=== PATIENT | female | born 1960 | race Caucasian/White ===

== ENCOUNTER 2022-08-02 21:46 | Inpatient (IN) | payer OTHER, BC ==
[~2022-08-02 21:46] MED LIST: Iopamidol-370 76% 500 ML MDV (1 ML CHARGE) ONE
[2022-08-02 22:14] LABS: #Basophils 0.1 thou/uL (0.0-0.2); #Eosinphils 0.2 thou/uL (0.0-0.7); #Lymphocytes 1.9 thou/uL (1.20-3.40); #Monocytes 0.5 thou/uL (0.11-0.59); #Neutrophils 7.3 thou/uL (1.40-6.50); %Basophils 0.6 % (0.0-1.0); %Eosinophils 1.8 % (0.0-10.0); %Lymphocytes 18.9 % (21.0-51.0); %Monocytes 5.4 % (0.0-10.0); %Neutrophils 73.3 % (42.0-75.0); Hemoglobin 12.9 g/dL (12.0-16.0); Mean Corpuscular HGB CONC 36.4 g/dL (32.0-36.0); Mean Corpuscular Hemoglobin 32.5 pg (27.0-31.0); Mean Corpuscular Volume 89.4 fl (78.0-98.0); Mean Platelet Volume 7.5 fL (7.4-10.4); Platelet Count 268 10x3/uL (130-400); RBC Distribution Width 11.8 % (11.5-14.5); Red Blood Cell (RBC) Count 3.96 mill/uL (4.20-5.40)
[2022-08-02] MEDS ORDERED: fentaNYL 50 mcg/mL 1 mL Vial ONE ×2 (22:23→22:37)
[2022-08-02] MEDS ORDERED: Ondansetron PF 4 MG/2 ML Vial ONE (22:24)
[2022-08-02 22:27] LABS: INR-International Normal Ratio 1.2; PTT 31.4 sec (22.9-36.1); Prothrombin Time 15.3 sec (12.0-14.7)
[2022-08-02] MEDS ORDERED: Boostrix 0.5 ML (Tdap) VIAL (>/=7 yrs of age) ONE (22:28)
[2022-08-02] MEDS ORDERED: CEFAZOLIN 1 GM VIAL ONE (22:28)
[2022-08-02 22:39] LABS: Acetaminophen Less than 10.0 mcg/mL (10.0-30.0); Alcohol 14 mg/dL (Less than 10); Salicylate Less than 8.0 mg/dL (15.0-30.0)
[2022-08-02 22:40] LABS: ALT (SGPT) 213 U/L (8-55); AST (SGOT) 209 U/L (5-34); Albumin 3.9 g/dL (3.5-5.0); Alkaline Phosphatase 78 U/L (40-110); Anion Gap 21 mmol/L (10-20); BUN (Urea Nitrogen) 13 mg/dL (9.8-20.1); Bilirubin, Total 0.4 mg/dL (0.2-1.2); Calc. Creatinine Clearance 0 mL/min (70-130); Calcium 8.5 mg/dL (7.8-10.44); Carbon Dioxide 18 mmol/L (22-29); Chloride 109 mmol/L (98-107); Estimated GFR 44; Globulin 2.4 g/dL (2.4-3.5); Glucose 188 mg/dL (70-105); Lipase 70 U/L (8-78); Potassium 3.9 mmol/L (3.5-5.1); Protein, Total 6.3 g/dL (6.0-8.3); Sodium 144 mmol/L (136-145)
[2022-08-02] MEDS ORDERED: Vecuronium 10 MG VIAL ONE (22:55)
[2022-08-02] MEDS ORDERED: Fentanyl CADD 100 ML IV SCH (23:00)
[2022-08-02] MEDS ORDERED: Lidocaine 1% (PF) 30 ML VIAL ONE (23:11)
[2022-08-02] MEDS ORDERED: Ventilator Sedation Protocol 1 EACH FS SCH (23:45)
[2022-08-02] MEDS ORDERED: Dextrose 5% in Water 1,000 ML IV PRN (23:50)
[2022-08-02] MEDS ORDERED: Insulin Regular 300 UNITS/3 ML VIAL SC PRN (23:50)
[2022-08-02] MEDS ORDERED: Dextrose 50% Abboject 50 ML SYRINGE SLOW IVP PRN (23:50)
[2022-08-02] MEDS ORDERED: Ipratropium/Albuterol 3 ML NEB NEB PRN (23:50)
[2022-08-03 00:07] LABS: Analyzer IN Cardio ER; Base Excess (BEa) -11.4 mEq/L (-2.0 to +3.0); CO2 Tension 29.8 mmHg (35.0-45.0); Carboxyhemoglobin (COHb) 0.3 gm% (0.0-3.0); Hematocrit-ABG 36 % (36.0-47.0); Hemoglobin (Hb) 12.4 g/dL (12.0-16.0); O2 Tension (PaO2), arterial 277.3 mmHg (> 80.0); pH, Arterial 7.287 (7.35-7.45)
[2022-08-03 00:10] LABS: Actual Bicarbonate (HCO3a) 13.9 mEq/L (22-28)
[2022-08-03 00:11] LABS: Calcium, Ionized (arterial) 0.63 mmol/L (1.12-1.30); Potassium - ABG Lab 6.21 mmol/L (3.70-5.30); Puncture Site RRA
[2022-08-03] MEDS ORDERED: fentaNYL 50 mcg/mL 1 mL Vial ONE (01:21)
[2022-08-03] MEDS ORDERED: Dexamethasone 20 MG/5 ML VIAL ONE (01:57)
[2022-08-03] MEDS ORDERED: Phenylephrine 10 MG/ML VIAL ONE (01:57)
[2022-08-03] MEDS ORDERED: Rocuronium Bromide 10 MG/ML (10ML VIAL) ONE (01:57)
[2022-08-03] MEDS ORDERED: Calcium Chloride 1 GM/10 ML Abboject SYRINGE ONE ×3 (01:57→19:13)
[2022-08-03] MEDS ORDERED: Vecuronium 10 MG VIAL ONE (01:57)
[2022-08-03] MEDS ORDERED: Piperacillin/Tazobactam 3.375 GM in Sodium Chloride 0.9% 100 ML IVPB SCH (02:00)
[2022-08-03] MEDS ORDERED: Midazolam HCl 2 mg/2 ml Vial ONE ×4 (02:12→19:14)
[2022-08-03 03:59] LABS: Actual Bicarbonate (HCO3a) 18.9 mEq/L (22-28); Base Excess (BEa) -5.3 mEq/L (-2.0 to +3.0); CO2 Tension 32.1 mmHg (35.0-45.0); Calcium, Ionized (arterial) 1.04 mmol/L (1.12-1.30); Carboxyhemoglobin (COHb) 0.3 gm% (0.0-3.0); Hematocrit-ABG 29 % (36.0-47.0); O2 Tension (PaO2), arterial 143.5 mmHg (> 80.0); Potassium - ABG Lab 3.19 mmol/L (3.70-5.30); pH, Arterial 7.388 (7.35-7.45)
[2022-08-03 04:00] LABS: #Lymphocytes 0.8 thou/uL (1.20-3.40); #Monocytes 0.7 thou/uL (0.11-0.59); #Neutrophils 7.2 thou/uL (1.40-6.50); %Eosinophils 0.4 % (0.0-10.0); %Lymphocytes 8.6 % (21.0-51.0); Hemoglobin 9.2 g/dL (12.0-16.0); Mean Corpuscular HGB CONC 35.8 g/dL (32.0-36.0); Mean Corpuscular Hemoglobin 32.3 pg (27.0-31.0); Mean Corpuscular Volume 90.2 fl (78.0-98.0); Mean Platelet Volume 7.7 fL (7.4-10.4); Platelet Count 130 10x3/uL (130-400); RBC Distribution Width 12.3 % (11.5-14.5); Red Blood Cell (RBC) Count 2.85 mill/uL (4.20-5.40); White Blood Cell (WBC) Count 8.7 10x3/uL (4.8-10.8)
[2022-08-03] MEDS: Sodium Chloride 0.9% 1,000 ML IV SCH ×3 (04:00→22:48)
[2022-08-03 04:01] LABS: ALV-art Gradient 101.575 mmHg (0-20); Puncture Site Arterial Line
[2022-08-03 04:18] LABS: INR-International Normal Ratio 1.2; PTT 26.5 sec (22.9-36.1); Prothrombin Time 15.9 sec (12.0-14.7)
[2022-08-03 04:22] LABS: Lactic Acid 5.4 mmol/L (0.5-2.2)
[2022-08-03 04:31] LABS: ALT (SGPT) 113 U/L (8-55); AST (SGOT) 188 U/L (5-34); Alkaline Phosphatase 55 U/L (40-110); Anion Gap 15 mmol/L (10-20); BUN (Urea Nitrogen) 15 mg/dL (9.8-20.1); Bilirubin, Total 1.3 mg/dL (0.2-1.2); Calc. Creatinine Clearance 0 mL/min (70-130); Calcium 7.7 mg/dL (7.8-10.44); Carbon Dioxide 17 mmol/L (22-29); Chloride 115 mmol/L (98-107); Estimated GFR 54; Globulin 1.9 g/dL (2.4-3.5); Glucose 127 mg/dL (70-105); Magnesium 1.6 mg/dL (1.6-2.6); Phosphorus 3.8 mg/dL (2.3-4.7); Potassium 3.3 mmol/L (3.5-5.1); Protein, Total 4.9 g/dL (6.0-8.3); Sodium 144 mmol/L (136-145)
[2022-08-03 04:39] LABS: Bacteria/HPF None Seen HPF (None Seen); Bilirubin Negative (Negative); Blood, Urine 3+ (Negative); CAUTI Indications for Culture Acute Hematuria; Clarity Clear (Clear); Glucose, Urine (Dipstick) Normal (Negative); Ketone, Urine Negative (Negative); Leukocyte Negative Leu/uL (Negative); Nitrite Negative (Negative); Protein, Urine (Dipstick) 30 mg/dL (Neg-Trace); Specific Gravity, Urine 1.026 (1.002-1.036); Squamous Epithelial 0-3 HPF (0-3); Urobilinogen Normal mg/dL (Less than 2); pH, Urine 5.5 (5.0-9.0)
[2022-08-03 04:40] LABS: Amphetamine Not Detected (NotDetected); Barbiturates Screen Not Detected (NotDetected); Benzodiazepine Screen Not Detected (NotDetected); Cocaine Metabolite Screen Not Detected (NotDetected); Methadone Not Detected (NotDetected); Methamphetamine Not Detected (NotDetected); Opiate Screen Not Detected (NotDetected); Oxycodone Screen Not Detected (NotDetected); Phencyclidine (PCP) Not Detected (NotDetected); THC/Cannabinoid Screen Detected (NotDetected); Tricyclic Screen Not Detected (NotDetected)
[2022-08-03 04:41] LABS: Urine Culture Reflex No No
[2022-08-03] MEDS ORDERED: Calcium Chloride 13.6 MEQ in Sodium Chloride 0.9% 100 ML IVPB SCH (04:45)
[2022-08-03] MEDS ORDERED: Magnesium 2 GM/50 ML(in water) 2 GM in Premix Bag 1 BAG IVPB SCH (05:00)
[2022-08-03] MEDS ORDERED: Potassium Phosphate 30 MMOL in Sodium Chloride 0.9% 250 ML 250 ML IVPB SCH (05:00)
[2022-08-03] MEDS ORDERED: Sodium Chloride 0.9% 1,000 ML IV SCH ×2 (06:45→11:30)
[2022-08-03] MEDS: Ipratropium/Albuterol 3 ML NEB NEB SCH ×3 (07:43→18:39)
[2022-08-03 07:46] LABS: CO2 Tension 27.9 mmHg (35.0-45.0); Calcium, Ionized (arterial) 1.14 mmol/L (1.12-1.30); Carboxyhemoglobin (COHb) 0.3 gm% (0.0-3.0); Hematocrit-ABG 31 % (36.0-47.0); Hemoglobin (Hb) 10.7 g/dL (12.0-16.0); Potassium - ABG Lab 4.26 mmol/L (3.70-5.30); pH, Arterial 7.376 (7.35-7.45)
[2022-08-03 07:52] LABS: ALV-art Gradient 81.325 mmHg (0-20); Puncture Site Arterial Line
[2022-08-03] MEDS ORDERED: Albumin 5% 0 ML ONE (09:09)
[2022-08-03 09:18] LABS: Lactic Acid 6.3 mmol/L (0.5-2.2)
[2022-08-03] MEDS ORDERED: Albumin 5% 250 ML ONE (09:28)
[2022-08-03 09:33] LABS: Base Excess (BEa) -10.3 mEq/L (-2.0 to +3.0); CO2 Tension 28.9 mmHg (35.0-45.0); Carboxyhemoglobin (COHb) 0.3 gm% (0.0-3.0); Hematocrit-ABG 30 % (36.0-47.0); Hemoglobin (Hb) 10.1 g/dL (12.0-16.0); O2 Tension (PaO2), arterial 153.2 mmHg (> 80.0); Potassium - ABG Lab 4.27 mmol/L (3.70-5.30); pH, Arterial 7.321 (7.35-7.45)
[2022-08-03 09:37] LABS: ALV-art Gradient 95.875 mmHg (0-20); Actual Bicarbonate (HCO3a) 14.6 mEq/L (22-28); Puncture Site Arterial Line
[2022-08-03 09:45] LABS: #Lymphocytes 0.5 thou/uL (1.20-3.40); #Monocytes 0.6 thou/uL (0.11-0.59); %Basophils 0.3 % (0.0-1.0); %Eosinophils 0.2 % (0.0-10.0); %Lymphocytes 4.8 % (21.0-51.0); %Monocytes 5.3 % (0.0-10.0); %Neutrophils 89.4 % (42.0-75.0); Hemoglobin 9.7 g/dL (12.0-16.0); Mean Corpuscular HGB CONC 36.3 g/dL (32.0-36.0); Mean Corpuscular Hemoglobin 32.8 pg (27.0-31.0); Mean Corpuscular Volume 90.3 fl (78.0-98.0); Mean Platelet Volume 7.9 fL (7.4-10.4); Platelet Count 141 10x3/uL (130-400); RBC Distribution Width 12.5 % (11.5-14.5); Red Blood Cell (RBC) Count 2.95 mill/uL (4.20-5.40); White Blood Cell (WBC) Count 11.2 10x3/uL (4.8-10.8)
[2022-08-03] MEDS ORDERED: Sodium Bicarb 50 MEQ/50 ML VIAL IVP SCH (10:00)
[2022-08-03] MEDS ORDERED: Calcium Chloride 1 GM/10 ML Abboject SYRINGE IVP SCH (10:00)
[2022-08-03] MEDS ORDERED: CEFAZOLIN 2 GM in Sodium Chloride 0.9% 100 ML IVPB SCH (10:15)
[2022-08-03 10:27] LABS: Anion Gap 17 mmol/L (10-20); BUN (Urea Nitrogen) 16 mg/dL (9.8-20.1); Calc. Creatinine Clearance 81 mL/min (70-130); Calcium 8.1 mg/dL (7.8-10.44); Carbon Dioxide 15 mmol/L (22-29); Chloride 117 mmol/L (98-107); Estimated GFR 56; Glucose 176 mg/dL (70-105); Magnesium 2.1 mg/dL (1.6-2.6); Phosphorus 6.3 mg/dL (2.3-4.7); Potassium 4.3 mmol/L (3.5-5.1); Sodium 145 mmol/L (136-145)
[2022-08-03] MEDS ORDERED: Midazolam HCl 2 mg/2 ml Vial IVP SCH (11:15)
[2022-08-03] MEDS: Piperacillin/Tazobactam 3.375 GM in Sodium Chloride 0.9% 100 ML IVPB SCH ×2 (11:22→20:06)
[2022-08-03 11:30] LABS: Actual Bicarbonate (HCO3a) 16.8 mEq/L (22-28); Base Excess (BEa) -9.2 mEq/L (-2.0 to +3.0); CO2 Tension 36.8 mmHg (35.0-45.0); Calcium, Ionized (arterial) 1.08 mmol/L (1.12-1.30); Carboxyhemoglobin (COHb) 0.3 gm% (0.0-3.0); Hematocrit-ABG 25 % (36.0-47.0); Hemoglobin (Hb) 8.4 g/dL (12.0-16.0); O2 Tension (PaO2), arterial 133.5 mmHg (> 80.0); pH, Arterial 7.278 (7.35-7.45)
[2022-08-03 11:35] LABS: Fibrinogen 210 mg/dL (253-463); INR-International Normal Ratio 1.2; PTT 28.7 sec (22.9-36.1); Prothrombin Time 16.2 sec (12.0-14.7)
[2022-08-03 11:37] LABS: Puncture Site Arterial Line
[2022-08-03 11:56] LABS: Platelet Count 98 10x3/uL (130-400)
[2022-08-03 11:59] LABS: D-Dimer Test Greater than 20.00 *mcg/mL (0.27-0.43)
[2022-08-03] MEDS ORDERED: Dexmedetomidine In 0.9 % NaCl 100 ML IVPB SCH (15:15)
[2022-08-03 17:25] LABS: Hemoglobin 6.4 g/dL (12.0-16.0); Mean Corpuscular HGB CONC 35.6 g/dL (32.0-36.0); Mean Corpuscular Hemoglobin 31.6 pg (27.0-31.0); Mean Corpuscular Volume 88.9 fl (78.0-98.0); Mean Platelet Volume 8.4 fL (7.4-10.4); Platelet Count 81 10x3/uL (130-400); RBC Distribution Width 12.6 % (11.5-14.5); Red Blood Cell (RBC) Count 2.03 mill/uL (4.20-5.40); White Blood Cell (WBC) Count 8.3 10x3/uL (4.8-10.8)
[2022-08-03 17:40] LABS: Anion Gap 14 mmol/L (10-20); BUN (Urea Nitrogen) 17 mg/dL (9.8-20.1); Calc. Creatinine Clearance 86 mL/min (70-130); Calcium 8.2 mg/dL (7.8-10.44); Carbon Dioxide 20 mmol/L (22-29); Chloride 119 mmol/L (98-107); Estimated GFR 59; Glucose 117 mg/dL (70-105); Potassium 4.4 mmol/L (3.5-5.1); Sodium 149 mmol/L (136-145)
[2022-08-03 17:55] LABS: Band 16 % (5-11); Lymphocytes 8 % (21-51); MDiff Complete? YES; Monocytes 3 % (0-10); Neutrophil 73 % (42-75); Platelet Morphology Comment Appears Decreased; Polychromasia SLIGHT = 2-3 cells (100X) (0-2/hpf)
[2022-08-03] MEDS ORDERED: Fentanyl BOLUS 250 ML IVPB PRN (18:30)
[2022-08-03] MEDS: Hydrocortisone Sod Succ/PF 100 mg/2 ml Vial IVP SCH (18:38)
[2022-08-03] MEDS: Fentanyl CADD 100 ML IV SCH (18:38)
[2022-08-03] MEDS: Lactated Ringer's 1,000 ML IV SCH (18:38)
[2022-08-03 19:09] LABS: Actual Bicarbonate (HCO3a) 20.9 mEq/L (22-28); Base Excess (BEa) -3.4 mEq/L (-2.0 to +3.0); CO2 Tension 33.6 mmHg (35.0-45.0); Calcium, Ionized (arterial) 1.09 mmol/L (1.12-1.30); Carboxyhemoglobin (COHb) 0.6 gm% (0.0-3.0); Hematocrit-ABG 20 % (36.0-47.0); Hemoglobin (Hb) 6.7 g/dL (12.0-16.0); O2 Tension (PaO2), arterial 112.6 mmHg (> 80.0); Potassium - ABG Lab 4.03 mmol/L (3.70-5.30); pH, Arterial 7.411 (7.35-7.45)
[2022-08-03 19:11] LABS: Puncture Site Arterial Line
[2022-08-03 19:42] LABS: INR-International Normal Ratio 1.4; PTT 32.1 sec (22.9-36.1); Prothrombin Time 17.7 sec (12.0-14.7)
[2022-08-03 21:38] LABS: #Lymphocytes 0.5 thou/uL (1.20-3.40); #Monocytes 0.9 thou/uL (0.11-0.59); #Neutrophils 7.2 thou/uL (1.40-6.50); %Eosinophils 0.2 % (0.0-10.0); %Lymphocytes 6.2 % (21.0-51.0); %Monocytes 10.2 % (0.0-10.0); %Neutrophils 83.5 % (42.0-75.0); Hemoglobin 9.5 g/dL (12.0-16.0); Mean Corpuscular HGB CONC 36.1 g/dL (32.0-36.0); Mean Corpuscular Hemoglobin 32.2 pg (27.0-31.0); Mean Corpuscular Volume 89.3 fl (78.0-98.0); Platelet Count 70 10x3/uL (130-400); RBC Distribution Width 12.8 % (11.5-14.5); Red Blood Cell (RBC) Count 2.93 mill/uL (4.20-5.40); White Blood Cell (WBC) Count 8.7 10x3/uL (4.8-10.8)
[2022-08-03 21:50] LABS: Lactic Acid 3.3 mmol/L (0.5-2.2)
[2022-08-04] MEDS: Hydrocortisone Sod Succ/PF 100 mg/2 ml Vial IVP SCH ×6 (00:10→21:56)
[2022-08-04] MEDS: Piperacillin/Tazobactam 3.375 GM in Sodium Chloride 0.9% 100 ML IVPB SCH (01:57)
[2022-08-04] MEDS: Lactated Ringer's 1,000 ML IV SCH ×3 (04:07→19:25)
[2022-08-04 04:50] LABS: #Lymphocytes 0.8 thou/uL (1.20-3.40); #Monocytes 0.6 thou/uL (0.11-0.59); #Neutrophils 7.3 thou/uL (1.40-6.50); %Basophils 0.1 % (0.0-1.0); %Eosinophils 0.2 % (0.0-10.0); %Lymphocytes 9.5 % (21.0-51.0); %Neutrophils 83.3 % (42.0-75.0); Hemoglobin 9.3 g/dL (12.0-16.0); Mean Corpuscular HGB CONC 35.3 g/dL (32.0-36.0); Mean Corpuscular Hemoglobin 31.4 pg (27.0-31.0); Mean Corpuscular Volume 88.8 fl (78.0-98.0); Mean Platelet Volume 8.6 fL (7.4-10.4); Platelet Count 67 10x3/uL (130-400); RBC Distribution Width 12.9 % (11.5-14.5); Red Blood Cell (RBC) Count 2.96 mill/uL (4.20-5.40); White Blood Cell (WBC) Count 8.8 10x3/uL (4.8-10.8)
[2022-08-04 04:54] LABS: Lactic Acid 2.1 mmol/L (0.5-2.2)
[2022-08-04 05:01] LABS: Anion Gap 15 mmol/L (10-20); BUN (Urea Nitrogen) 18 mg/dL (9.8-20.1); Calc. Creatinine Clearance 92 mL/min (70-130); Calcium 9.4 mg/dL (7.8-10.44); Carbon Dioxide 20 mmol/L (22-29); Chloride 117 mmol/L (98-107); Estimated GFR 64; Glucose 133 mg/dL (70-105); Magnesium 1.8 mg/dL (1.6-2.6); Phosphorus 3.6 mg/dL (2.3-4.7); Potassium 4.3 mmol/L (3.5-5.1); Sodium 148 mmol/L (136-145)
[2022-08-04] MEDS: Ipratropium/Albuterol 3 ML NEB NEB SCH ×3 (08:09→18:23)
[2022-08-04] MEDS: Fentanyl CADD 100 ML IV SCH ×2 (09:29→23:04)
[2022-08-04] MEDS: Pantoprazole 40 MG VIAL IVP SCH (09:29)
[2022-08-04] MEDS ORDERED: PHENYLEPHRINE-NS 100 MCG/ML 10 ML SYRINGE ONE ×2 (13:40→14:04)
[2022-08-04] MEDS ORDERED: Fentanyl 250 MCG/5 ML VIAL ONE (13:40)
[2022-08-04] MEDS ORDERED: Vecuronium 10 MG VIAL ONE ×2 (13:40→14:04)
[2022-08-04] MEDS ORDERED: Vasopressin 20 UNITS/ML VIAL ONE (13:48)
[2022-08-04] MEDS ORDERED: Albumin 5% 500 ML ONE (13:48)
[2022-08-04] MEDS ORDERED: PROPOFOL 200 MG/20 ML VIAL ONE (14:04)
[2022-08-04] MEDS ORDERED: Sevoflurane 250 ML INH ANEST BOTTLE ONE (14:06)
[2022-08-04 17:22] LABS: Actual Bicarbonate (HCO3a) 23.6 mEq/L (22-28); Base Excess (BEa) -1.4 mEq/L (-2.0 to +3.0); CO2 Tension 40.9 mmHg (35.0-45.0); Calcium, Ionized (arterial) 1.15 mmol/L (1.12-1.30); Carboxyhemoglobin (COHb) 0.4 gm% (0.0-3.0); Hematocrit-ABG 25 % (36.0-47.0); Hemoglobin (Hb) 8.5 g/dL (12.0-16.0); O2 Tension (PaO2), arterial 111.1 mmHg (> 80.0); Potassium - ABG Lab 3.65 mmol/L (3.70-5.30); pH, Arterial 7.379 (7.35-7.45)
[2022-08-04 17:25] LABS: ALV-art Gradient 408.175 mmHg (0-20); Puncture Site Arterial Line
[2022-08-04 18:13] LABS: #Lymphocytes 0.8 thou/uL (1.20-3.40); #Monocytes 0.4 thou/uL (0.11-0.59); #Neutrophils 5.2 thou/uL (1.40-6.50); %Monocytes 6.4 % (0.0-10.0); %Neutrophils 80.6 % (42.0-75.0); Hemoglobin 8.3 g/dL (12.0-16.0); Mean Corpuscular Hemoglobin 32.7 pg (27.0-31.0); Mean Corpuscular Volume 90.8 fl (78.0-98.0); Mean Platelet Volume 9.2 fL (7.4-10.4); Platelet Count 59 10x3/uL (130-400); Red Blood Cell (RBC) Count 2.54 mill/uL (4.20-5.40); White Blood Cell (WBC) Count 6.4 10x3/uL (4.8-10.8)
[2022-08-04 18:41] LABS: Anion Gap 13 mmol/L (10-20); BUN (Urea Nitrogen) 18 mg/dL (9.8-20.1); Calc. Creatinine Clearance 111 mL/min (70-130); Calcium 8.5 mg/dL (7.8-10.44); Carbon Dioxide 22 mmol/L (22-29); Chloride 115 mmol/L (98-107); Estimated GFR 81; Glucose 146 mg/dL (70-105); Magnesium 1.9 mg/dL (1.6-2.6); Potassium 3.8 mmol/L (3.5-5.1); Sodium 146 mmol/L (136-145)
[2022-08-04] MEDS: ALBUMIN 5% 25 GM/500 ML BAG IVPB SCH ×2 (19:15→20:15)
[2022-08-04] MEDS ORDERED: Potassium Phosphate 30 MMOL in Sodium Chloride 0.9% 250 ML 250 ML IVPB SCH (19:30)
[2022-08-04] MEDS: Propofol 1,000 MG/100 ML VIAL IV PRN (23:32)
[2022-08-05] MEDS: Dexmedetomidine 1,000 MCG in Sodium Chloride 0.9% 250 ML 240 ML IVPB SCH ×3 (01:10→23:58)
[2022-08-05] MEDS: Hydrocortisone Sod Succ/PF 100 mg/2 ml Vial IVP SCH ×4 (02:00→21:57)
[2022-08-05] MEDS: hydrALAZINE 20 MG/ML VIAL SLOW IVP PRN (03:08)
[2022-08-05 04:13] LABS: #Lymphocytes 0.7 thou/uL (1.20-3.40); #Monocytes 0.4 thou/uL (0.11-0.59); #Neutrophils 4.4 thou/uL (1.40-6.50); %Basophils 0.1 % (0.0-1.0); %Eosinophils 0.3 % (0.0-10.0); %Lymphocytes 13.3 % (21.0-51.0); %Monocytes 6.7 % (0.0-10.0); %Neutrophils 79.6 % (42.0-75.0); Hemoglobin 7.7 g/dL (12.0-16.0); Mean Corpuscular HGB CONC 35.9 g/dL (32.0-36.0); Mean Corpuscular Hemoglobin 32.4 pg (27.0-31.0); Mean Corpuscular Volume 90.4 fl (78.0-98.0); Mean Platelet Volume 9.6 fL (7.4-10.4); Platelet Count 61 10x3/uL (130-400); RBC Distribution Width 12.9 % (11.5-14.5); Red Blood Cell (RBC) Count 2.37 mill/uL (4.20-5.40); White Blood Cell (WBC) Count 5.5 10x3/uL (4.8-10.8)
[2022-08-05 04:29] LABS: Anion Gap 13 mmol/L (10-20); BUN (Urea Nitrogen) 16 mg/dL (9.8-20.1); Calc. Creatinine Clearance 123 mL/min (70-130); Calcium 8.3 mg/dL (7.8-10.44); Carbon Dioxide 22 mmol/L (22-29); Chloride 114 mmol/L (98-107); Estimated GFR 91; Glucose 143 mg/dL (70-105); Magnesium 1.7 mg/dL (1.6-2.6); Phosphorus 2.8 mg/dL (2.3-4.7); Potassium 3.8 mmol/L (3.5-5.1); Sodium 145 mmol/L (136-145)
[2022-08-05 04:42] LABS: CK (CPK) 6001 U/L (29-168)
[2022-08-05 06:08] LABS: Actual Bicarbonate (HCO3a) 22.9 mEq/L (22-28); Base Excess (BEa) -0.5 mEq/L (-2.0 to +3.0); Calcium, Ionized (arterial) 1.08 mmol/L (1.12-1.30); Carboxyhemoglobin (COHb) 0.1 gm% (0.0-3.0); Hematocrit-ABG 24 % (36.0-47.0); pH, Arterial 7.472 (7.35-7.45)
[2022-08-05 06:11] LABS: Puncture Site Arterial Line
[2022-08-05] MEDS: Ipratropium/Albuterol 3 ML NEB NEB SCH ×3 (06:13→18:26)
[2022-08-05] MEDS ORDERED: Calcium Chloride 1 GM/10 ML Abboject SYRINGE IVP SCH (06:30)
[2022-08-05] MEDS: Lactated Ringer's 1,000 ML IV SCH ×3 (06:42→21:56)
[2022-08-05] MEDS ORDERED: Lidocaine 1% w/Epinephrine 1:100K 20 ML VIAL FS SCH (07:00)
[2022-08-05] MEDS: Fentanyl CADD 100 ML IV SCH ×2 (08:59→18:17)
[2022-08-05] MEDS ORDERED: Piperacillin/Tazobactam 3.375 GM in Sodium Chloride 0.9% 100 ML IVPB SCH ×2 (10:00→10:15)
[2022-08-05] MEDS: Pantoprazole 40 MG VIAL IVP SCH (10:42)
[2022-08-05] MEDS: Propofol 1,000 MG/100 ML VIAL IV PRN (10:52)
[2022-08-05] MEDS ORDERED: CEFAZOLIN 2 GM in Sodium Chloride 0.9% 100 ML IVPB SCH (13:15)
[2022-08-05] MEDS: Piperacillin/Tazobactam 3.375 GM in Sodium Chloride 0.9% 100 ML IVPB SCH ×2 (14:28→21:56)
[2022-08-06] MEDS: Hydrocortisone Sod Succ/PF 100 mg/2 ml Vial IVP SCH ×4 (02:49→20:00)
[2022-08-06] MEDS: Fentanyl CADD 100 ML IV SCH ×2 (04:17→22:36)
[2022-08-06 05:10] LABS: Hemoglobin 8.7 g/dL (12.0-16.0); Mean Corpuscular HGB CONC 34.5 g/dL (32.0-36.0); Mean Corpuscular Hemoglobin 31.7 pg (27.0-31.0); Mean Corpuscular Volume 91.8 fl (78.0-98.0); Mean Platelet Volume 9.2 fL (7.4-10.4); Platelet Count 77 10x3/uL (130-400); RBC Distribution Width 12.8 % (11.5-14.5); Red Blood Cell (RBC) Count 2.75 mill/uL (4.20-5.40)
[2022-08-06 05:15] LABS: Anion Gap 10 mmol/L (10-20); BUN (Urea Nitrogen) 18 mg/dL (9.8-20.1); Calc. Creatinine Clearance 132 mL/min (70-130); Calcium 8.2 mg/dL (7.8-10.44); Carbon Dioxide 25 mmol/L (22-29); Chloride 112 mmol/L (98-107); Estimated GFR 99; Glucose 149 mg/dL (70-105); Magnesium 1.8 mg/dL (1.6-2.6); Phosphorus 2.6 mg/dL (2.3-4.7); Potassium 3.8 mmol/L (3.5-5.1); Sodium 143 mmol/L (136-145)
[2022-08-06 06:17] LABS: Lymphocytes 16 % (21-51); MDiff Complete? YES; Monocytes 1 % (0-10); Neutrophil 83 % (42-75); Platelet Morphology Comment Appears Decreased; Polychromasia SLIGHT = 2-3 cells (100X) (0-2/hpf); White Blood Cell (WBC) Count 7.7 10x3/uL (4.8-10.8)
[2022-08-06] MEDS: Lactated Ringer's 1,000 ML IV SCH ×3 (06:34→22:30)
[2022-08-06] MEDS: Piperacillin/Tazobactam 3.375 GM in Sodium Chloride 0.9% 100 ML IVPB SCH ×3 (06:34→22:44)
[2022-08-06] MEDS: Propofol 1,000 MG/100 ML VIAL IV PRN (06:49)
[2022-08-06] MEDS: Ipratropium/Albuterol 3 ML NEB NEB SCH ×3 (07:05→18:40)
[2022-08-06] MEDS ORDERED: Magnesium 2 GM/50 ML(in water) 2 GM in Premix Bag 1 BAG IVPB SCH (07:15)
[2022-08-06] MEDS ORDERED: Potassium Phosphate 30 MMOL in Sodium Chloride 0.9% 250 ML 250 ML IVPB SCH (09:00)
[2022-08-06] MEDS: Dexmedetomidine 1,000 MCG in Sodium Chloride 0.9% 250 ML 240 ML IVPB SCH (09:24)
[2022-08-06] MEDS: Pantoprazole 40 MG VIAL IVP SCH (09:27)
[2022-08-06] MEDS ORDERED: fentaNYL 50 mcg/mL 1 mL Vial SLOW IVP SCH (12:30)
[2022-08-06] MEDS ORDERED: Midazolam HCl 2 mg/2 ml Vial SLOW IVP SCH (12:30)
[2022-08-06] MEDS ORDERED: Rocuronium Bromide 10 MG/ML (10ML VIAL) ONE (13:07)
[2022-08-06] MEDS ORDERED: PHENYLEPHRINE-NS 100 MCG/ML 10 ML SYRINGE ONE (13:07)
[2022-08-06] MEDS ORDERED: CEFAZOLIN 1 GM VIAL ONE (14:11)
[2022-08-06] MEDS ORDERED: Vancomycin 1 GM VIAL ONE ×3 (15:06→17:00)
[2022-08-06] MEDS ORDERED: Bupivacaine PF 0.5% 30 ML VIAL ONE (21:06)
[2022-08-06] MEDS ORDERED: Bacitracin Zinc Ointment 30 gm TUBE ONE (21:16)
[2022-08-07] MEDS: Propofol 1,000 MG/100 ML VIAL IV PRN ×2 (01:32→08:38)
[2022-08-07] MEDS: Hydrocortisone Sod Succ/PF 100 mg/2 ml Vial IVP SCH ×3 (01:49→14:45)
[2022-08-07 04:47] LABS: Hemoglobin 9.9 g/dL (12.0-16.0); Mean Corpuscular Volume 91.4 fl (78.0-98.0); Platelet Count 118 10x3/uL (130-400); RBC Distribution Width 13.7 % (11.5-14.5)
[2022-08-07 05:05] LABS: Anion Gap 12 mmol/L (10-20); BUN (Urea Nitrogen) 16 mg/dL (9.8-20.1); Calc. Creatinine Clearance 176 mL/min (70-130); Calcium 7.4 mg/dL (7.8-10.44); Carbon Dioxide 25 mmol/L (22-29); Chloride 112 mmol/L (98-107); Estimated GFR 101; Glucose 85 mg/dL (70-105); Phosphorus 2.2 mg/dL (2.3-4.7); Potassium 3.5 mmol/L (3.5-5.1); Sodium 145 mmol/L (136-145)
[2022-08-07 05:31] LABS: Band 12 % (5-11); Eosinophils 1 % (0-10); Lymphocytes 4 % (21-51); MDiff Complete? YES; Metamyelocyte 2 % (0-0); Monocytes 8 % (0-10); Myelocyte 6 % (0-0); Neutrophil 66 % (42-75); Nucleated RBC (Manual Ct) 2 % (0); Platelet Morphology Comment Appears Decreased; Reactive Lymphocytes 1 % (0-10)
[2022-08-07] MEDS: Piperacillin/Tazobactam 3.375 GM in Sodium Chloride 0.9% 100 ML IVPB SCH ×3 (05:46→21:54)
[2022-08-07] MEDS: Lactated Ringer's 1,000 ML IV SCH (05:46)
[2022-08-07] MEDS: Ipratropium/Albuterol 3 ML NEB NEB SCH ×3 (06:49→18:38)
[2022-08-07] MEDS ORDERED: Fentanyl CADD 100 ML ONE (07:33)
[2022-08-07] MEDS: Fentanyl CADD 100 ML IV SCH (07:47)
[2022-08-07] MEDS: Pantoprazole 40 MG VIAL IVP SCH (08:38)
[2022-08-07] MEDS ORDERED: Furosemide 20 MG/2 ML VIAL SLOW IVP SCH (08:45)
[2022-08-07] MEDS ORDERED: Naloxone HCl 0.4 mg/ml Vial IV PRN (10:00)
[2022-08-07] MEDS ORDERED: Zolpidem Tartrate 5 MG TAB PO PRN (10:00)
[2022-08-07] MEDS ORDERED: diphenhydrAMINE 25 MG CAP PO PRN (10:00)
[2022-08-07] MEDS ORDERED: diphenhydrAMINE 50 MG/ML VIAL IVP PRN (10:00)
[2022-08-07] MEDS ORDERED: Promethazine HCl 25 MG/ML VIAL IM PRN (10:00)
[2022-08-07] MEDS ORDERED: Communication Order-Pharmacy FS SCH (10:00)
[2022-08-07] MEDS ORDERED: diphenhydrAMINE 50 MG/ML VIAL IM PRN (10:00)
[2022-08-07] MEDS ORDERED: Morphine 4 MG/ML VIAL ONE (10:29)
[2022-08-07] MEDS ORDERED: Morphine 4 MG/ML VIAL SLOW IVP SCH (10:30)
[2022-08-07] MEDS: Ondansetron PF 4 MG/2 ML Vial IVP PRN ×3 (10:30→22:21)
[2022-08-07] MEDS: HYDROmorphone 10 mg/100 ml CADD IVPB PRN (11:05)
[2022-08-07 16:46] LABS: INR-International Normal Ratio 1.2; PTT 28.3 sec (22.9-36.1); Prothrombin Time 15.3 sec (12.0-14.7)
[2022-08-07] MEDS ORDERED: Scopolamine 1.5 mg/72 hour Patch TD SCH (18:30)
[2022-08-07] MEDS: Labetalol HCl 100 MG/20 ML VIAL SLOW IVP PRN (21:55)
[2022-08-07] MEDS: Scopolamine 1.5 mg/72 hour Patch TD SCH (22:16)
[2022-08-08 04:52] LABS: Band 7 % (5-11); Eosinophils 1 % (0-10); Hypochromia SLIGHT = 6-15 cells (100X) (0-5/hpf); Lymphocytes 12 % (21-51); MDiff Complete? YES; Mean Corpuscular HGB CONC 34.4 g/dL (32.0-36.0); Mean Corpuscular Hemoglobin 31.9 pg (27.0-31.0); Mean Corpuscular Volume 92.7 fl (78.0-98.0); Mean Platelet Volume 8.5 fL (7.4-10.4); Monocytes 12 % (0-10); Neutrophil 63 % (42-75); Platelet Count 134 10x3/uL (130-400); Platelet Morphology Comment Appears Adequate; RBC Distribution Width 13.9 % (11.5-14.5); Reactive Lymphocytes 5 % (0-10); Red Blood Cell (RBC) Count 3.12 mill/uL (4.20-5.40); White Blood Cell (WBC) Count 12.1 10x3/uL (4.8-10.8)
[2022-08-08 05:13] LABS: Anion Gap 14 mmol/L (10-20); BUN (Urea Nitrogen) 16 mg/dL (9.8-20.1); Calc. Creatinine Clearance 163 mL/min (70-130); Calcium 7.5 mg/dL (7.8-10.44); Carbon Dioxide 25 mmol/L (22-29); Chloride 111 mmol/L (98-107); Estimated GFR 99; Glucose 67 mg/dL (70-105); Potassium 2.8 mmol/L (3.5-5.1); Sodium 147 mmol/L (136-145)
[2022-08-08] MEDS: Piperacillin/Tazobactam 3.375 GM in Sodium Chloride 0.9% 100 ML IVPB SCH (05:44)
[2022-08-08] MEDS: Ipratropium/Albuterol 3 ML NEB NEB SCH ×3 (07:00→19:46)
[2022-08-08] MEDS ORDERED: Potassium Phosphate 30 MMOL in Sodium Chloride 0.9% 250 ML 250 ML IVPB SCH (08:15)
[2022-08-08] MEDS: Pantoprazole 40 MG VIAL IVP SCH (08:33)
[2022-08-08] MEDS: Labetalol HCl 100 MG/20 ML VIAL SLOW IVP PRN ×3 (08:46→16:52)
[2022-08-08] MEDS: Acetaminophen 500 MG TAB PO SCH ×3 (10:38→22:16)
[2022-08-08] MEDS: traMADol HCl 50 MG TAB PO SCH ×3 (10:40→23:16)
[2022-08-08] MEDS: hydrALAZINE 20 MG/ML VIAL SLOW IVP PRN (12:02)
[2022-08-08] MEDS: Ascorbic Acid 500 mg Chewable Tablet PO SCH (17:16)
[2022-08-08] MEDS: Ibuprofen 200 MG TAB PO SCH ×2 (17:16→21:24)
[2022-08-08] MEDS: Ferrous Sulfate 325 MG TAB PO SCH (17:17)
[2022-08-08] MEDS: HYDROmorphone 10 mg/100 ml CADD IVPB PRN (18:26)
[2022-08-08] MEDS: Ondansetron PF 4 MG/2 ML Vial IVP PRN (20:49)
[2022-08-09 05:24] LABS: Anion Gap 15 mmol/L (10-20); BUN (Urea Nitrogen) 16 mg/dL (9.8-20.1); Calc. Creatinine Clearance 165 mL/min (70-130); Calcium 7.7 mg/dL (7.8-10.44); Carbon Dioxide 25 mmol/L (22-29); Chloride 111 mmol/L (98-107); Estimated GFR 102; Glucose 83 mg/dL (70-105); Magnesium 2.1 mg/dL (1.6-2.6); Phosphorus 2.4 mg/dL (2.3-4.7); Potassium 3.2 mmol/L (3.5-5.1); Sodium 148 mmol/L (136-145)
[2022-08-09 05:38] LABS: Hemoglobin 10.5 g/dL (12.0-16.0); Mean Corpuscular HGB CONC 33.1 g/dL (32.0-36.0); Mean Corpuscular Hemoglobin 31.2 pg (27.0-31.0); Mean Corpuscular Volume 94.4 fl (78.0-98.0); Mean Platelet Volume 8.6 fL (7.4-10.4); Platelet Count 175 10x3/uL (130-400); RBC Distribution Width 14.2 % (11.5-14.5); Red Blood Cell (RBC) Count 3.37 mill/uL (4.20-5.40); White Blood Cell (WBC) Count 13.8 10x3/uL (4.8-10.8)
[2022-08-09 05:39] LABS: Band 4 % (5-11); Eosinophils 2 % (0-10); Lymphocytes 12 % (21-51); MDiff Complete? YES; Monocytes 20 % (0-10); Myelocyte 2 % (0-0); Neutrophil 60 % (42-75); Platelet Morphology Comment Appears Adequate; RBC Morphology Normal
[2022-08-09] MEDS: Acetaminophen 500 MG TAB PO SCH ×4 (06:04→20:46)
[2022-08-09] MEDS: traMADol HCl 50 MG TAB PO SCH ×4 (06:10→23:55)
[2022-08-09] MEDS: Ibuprofen 200 MG TAB PO SCH ×3 (06:11→20:47)
[2022-08-09] MEDS ORDERED: Potassium Chloride 20 MEQ TAB PO SCH (08:00)
[2022-08-09] MEDS: Ascorbic Acid 500 mg Chewable Tablet PO SCH ×2 (08:00→18:46)
[2022-08-09] MEDS: Ipratropium/Albuterol 3 ML NEB NEB SCH ×2 (08:10→13:47)
[2022-08-09] MEDS: Pantoprazole 40 MG VIAL IVP SCH (10:43)
[2022-08-09] MEDS: Polyethylene Glycol 3350 17 GM Packet PO SCH (12:31)
[2022-08-09] MEDS: Ferrous Sulfate 325 MG TAB PO SCH ×2 (12:32→18:46)
[2022-08-09] MEDS: Senokot S 8.6-50 MG TAB PO SCH ×2 (12:32→20:48)
[2022-08-09] MEDS ORDERED: Ipratropium 200 Puff Oral Inhaler INH PRN (13:54)
[2022-08-09] MEDS ORDERED: Albuterol HFA (OR) 200 PUFF INH INH PRN (14:00)
[2022-08-09] MEDS: Gabapentin 300 MG CAP PO SCH ×2 (18:41→20:47)
[2022-08-09] MEDS: Ipratropium 200 Puff Oral Inhaler INH SCH (18:53)
[2022-08-09] MEDS: Albuterol HFA (OR) 200 PUFF INH INH SCH (18:57)
[2022-08-10] MEDS: Acetaminophen 500 MG TAB PO SCH ×4 (05:30→21:32)
[2022-08-10] MEDS: Ibuprofen 200 MG TAB PO SCH ×2 (05:30→17:37)
[2022-08-10] MEDS: traMADol HCl 50 MG TAB PO SCH ×3 (05:31→17:38)
[2022-08-10 07:31] LABS: Anion Gap 12 mmol/L (10-20); BUN (Urea Nitrogen) 15 mg/dL (9.8-20.1); Calc. Creatinine Clearance 187 mL/min (70-130); Calcium 7.8 mg/dL (7.8-10.44); Carbon Dioxide 28 mmol/L (22-29); Chloride 111 mmol/L (98-107); Estimated GFR 105; Glucose 109 mg/dL (70-105); Magnesium 1.9 mg/dL (1.6-2.6); Phosphorus 2.2 mg/dL (2.3-4.7); Potassium 3.2 mmol/L (3.5-5.1); Sodium 148 mmol/L (136-145)
[2022-08-10] MEDS: Albuterol HFA (OR) 200 PUFF INH INH SCH ×3 (08:56→19:01)
[2022-08-10] MEDS: Ipratropium 200 Puff Oral Inhaler INH SCH ×3 (08:57→19:01)
[2022-08-10] MEDS: Polyethylene Glycol 3350 17 GM Packet PO SCH (09:54)
[2022-08-10] MEDS: Pantoprazole 40 MG VIAL IVP SCH (10:10)
[2022-08-10] MEDS: Senokot S 8.6-50 MG TAB PO SCH ×2 (10:11→21:31)
[2022-08-10] MEDS: Gabapentin 300 MG CAP PO SCH ×3 (10:12→21:31)
[2022-08-10] MEDS: Ferrous Sulfate 325 MG TAB PO SCH ×2 (10:12→17:37)
[2022-08-10] MEDS: Ascorbic Acid 500 mg Chewable Tablet PO SCH ×2 (10:12→17:39)
[2022-08-10] MEDS: Ondansetron PF 4 MG/2 ML Vial IVP PRN (10:17)
[2022-08-10] MEDS ORDERED: Potassium Phosphate 30 MMOL in Sodium Chloride 0.9% 250 ML 250 ML IVPB SCH (11:30)
[2022-08-10] MEDS ORDERED: HYDROmorphone 0.5 MG/0.5 ML SYRINGE SLOW IVP PRN (13:03)
[2022-08-10] MEDS: CEFAZOLIN 2 GM in Sodium Chloride 0.9% 100 ML IVPB SCH (17:36)
[2022-08-10] MEDS: Gentamicin 80 MG/2 ML VIAL IM SCH (17:39)
[2022-08-10] MEDS: Morphine 2 MG/ML VIAL SLOW IVP PRN (21:26)
[2022-08-10] MEDS: Scopolamine 1.5 mg/72 hour Patch TD SCH (21:33)
[2022-08-11] MEDS: CEFAZOLIN 2 GM in Sodium Chloride 0.9% 100 ML IVPB SCH ×3 (00:15→17:40)
[2022-08-11] MEDS: Ibuprofen 200 MG TAB PO SCH ×3 (00:16→15:34)
[2022-08-11] MEDS: traMADol HCl 50 MG TAB PO SCH ×4 (00:16→17:50)
[2022-08-11] MEDS: Gentamicin 80 MG/2 ML VIAL IM SCH ×3 (00:17→17:40)
[2022-08-11] MEDS: Acetaminophen 500 MG TAB PO SCH ×2 (04:28→10:23)
[2022-08-11 06:18] LABS: Anion Gap 11 mmol/L (10-20); BUN (Urea Nitrogen) 14 mg/dL (9.8-20.1); Calc. Creatinine Clearance 172 mL/min (70-130); Calcium 7.8 mg/dL (7.8-10.44); Carbon Dioxide 27 mmol/L (22-29); Chloride 109 mmol/L (98-107); Estimated GFR 104; Glucose 103 mg/dL (70-105); Magnesium 1.8 mg/dL (1.6-2.6); Sodium 144 mmol/L (136-145)
[2022-08-11 06:34] LABS: Hemoglobin 10.4 g/dL (12.0-16.0); Mean Corpuscular HGB CONC 34.6 g/dL (32.0-36.0); Mean Corpuscular Hemoglobin 32.6 pg (27.0-31.0); Mean Corpuscular Volume 94.4 fl (78.0-98.0); Mean Platelet Volume 8.7 fL (7.4-10.4); Platelet Count 178 10x3/uL (130-400); White Blood Cell (WBC) Count 12.4 10x3/uL (4.8-10.8)
[2022-08-11 06:46] LABS: Band 4 % (5-11); Eosinophils 7 % (0-10); Lymphocytes 16 % (21-51); MDiff Complete? YES; Monocytes 7 % (0-10); Myelocyte 3 % (0-0); Neutrophil 62 % (42-75); Platelet Morphology Comment Appears Adequate; RBC Morphology Normal
[2022-08-11] MEDS: Albuterol HFA (OR) 200 PUFF INH INH SCH ×3 (07:22→18:36)
[2022-08-11] MEDS: Ipratropium 200 Puff Oral Inhaler INH SCH ×3 (07:22→18:37)
[2022-08-11] MEDS: Ondansetron PF 4 MG/2 ML Vial IVP PRN (08:41)
[2022-08-11] MEDS: Morphine 2 MG/ML VIAL SLOW IVP PRN (08:41)
[2022-08-11] MEDS: Gabapentin 300 MG CAP PO SCH ×3 (08:44→22:02)
[2022-08-11] MEDS: Ferrous Sulfate 325 MG TAB PO SCH (08:45)
[2022-08-11] MEDS: Ascorbic Acid 500 mg Chewable Tablet PO SCH (08:45)
[2022-08-11] MEDS ORDERED: Potassium Phosphate 30 MMOL, Magnesium Sulfate 2 GM in Sodium Chloride 0.9% 250 ML 250 ML IVPB SCH (09:00)
[2022-08-11] MEDS: Polyethylene Glycol 3350 17 GM Packet PO SCH (10:22)
[2022-08-11] MEDS: Senokot S 8.6-50 MG TAB PO SCH ×2 (10:23→22:03)
[2022-08-11] MEDS ORDERED: Acetaminophen/Codeine 30-300mg Tablet PO PRN (17:37)
[2022-08-11] MEDS: Acetaminophen 325 MG TAB PO SCH (17:41)
[2022-08-11] MEDS: Acetaminophen/Codeine 30-300mg Tablet PO SCH (17:49)
[2022-08-11] MEDS ORDERED: Acetaminophen 500 MG TAB PO SCH (18:00)
[2022-08-11] MEDS ORDERED: Acetaminophen/Codeine 30-300mg Tablet PO SCH (18:00)
[2022-08-11] MEDS ORDERED: Morphine 4 MG/ML VIAL ONE (18:52)
[2022-08-11] MEDS ORDERED: Ondansetron PF 4 MG/2 ML Vial ONE ×2 (18:52→20:00)
[2022-08-11 19:06] LABS: Anion Gap 14 mmol/L (10-20); BUN (Urea Nitrogen) 12 mg/dL (9.8-20.1); Calc. Creatinine Clearance 188 mL/min (70-130); Carbon Dioxide 25 mmol/L (22-29); Chloride 107 mmol/L (98-107); Estimated GFR 106; Glucose 85 mg/dL (70-105); Magnesium 2.3 mg/dL (1.6-2.6); Phosphorus 3.6 mg/dL (2.3-4.7); Potassium 3.5 mmol/L (3.5-5.1); Sodium 142 mmol/L (136-145)
[2022-08-11] MEDS ORDERED: fentaNYL PF 100 MCG/2 ML SYRINGE ONE (19:30)
[2022-08-11] MEDS ORDERED: Midazolam HCl 2 mg/2 ml Vial ONE (19:30)
[2022-08-11] MEDS ORDERED: Vancomycin 1 GM VIAL ONE (19:41)
[2022-08-11] MEDS ORDERED: Bupivacaine PF 0.5% 30 ML VIAL ONE (19:41)
[2022-08-11] MEDS ORDERED: Bacitracin Zinc Ointment 30 gm TUBE ONE (19:41)
[2022-08-11] MEDS ORDERED: PHENYLEPHRINE-NS 100 MCG/ML 10 ML SYRINGE ONE (20:00)
[2022-08-11] MEDS ORDERED: Lidocaine 1% PF 5 ML VIAL ONE (20:00)
[2022-08-11] MEDS ORDERED: Propofol 1,000 MG/100 ML VIAL IV ONE (20:00)
[2022-08-11] MEDS ORDERED: Dexamethasone 20 MG/5 ML VIAL ONE (20:00)
[2022-08-11] MEDS ORDERED: Phenylephrine 10 MG/ML VIAL ONE (20:21)
[2022-08-11] MEDS ORDERED: Ondansetron HCl/PF 4 MG/2 ML Vial IVP PRN (20:27)
[2022-08-11] MEDS ORDERED: HYDROmorphone 2 MG/ML VIAL SLOW IVP PRN (20:27)
[2022-08-11] MEDS ORDERED: Promethazine HCl 25 MG/ML VIAL IM PRN ×2 (20:27→22:45)
[2022-08-11] MEDS ORDERED: Vasopressin 20 UNITS/ML VIAL ONE (21:27)
[2022-08-11] MEDS ORDERED: HYDROmorphone 0.5 MG/0.5 ML SYRINGE ONE ×4 (22:08→22:41)
[2022-08-11] MEDS ORDERED: Promethazine HCl 25 MG/ML VIAL ONE (22:16)
[2022-08-11] MEDS ORDERED: Meperidine HCl/PF 25 MG/ML VIAL IM PRN (22:45)
[2022-08-11] MEDS ORDERED: fentaNYL 50 mcg/mL 1 mL Vial ONE ×2 (22:51→23:05)
[2022-08-12] MEDS: Morphine 4 MG/ML VIAL SLOW IVP PRN ×3 (00:11→08:57)
[2022-08-12] MEDS: Acetaminophen 325 MG TAB PO SCH ×5 (00:12→23:16)
[2022-08-12] MEDS: Acetaminophen/Codeine 30-300mg Tablet PO SCH ×5 (00:12→23:17)
[2022-08-12] MEDS: Ibuprofen 200 MG TAB PO SCH ×4 (00:13→23:17)
[2022-08-12] MEDS: traMADol HCl 50 MG TAB PO SCH ×5 (00:13→23:17)
[2022-08-12] MEDS: CEFAZOLIN 2 GM in Sodium Chloride 0.9% 100 ML IVPB SCH ×3 (00:13→17:15)
[2022-08-12] MEDS: Gentamicin 80 MG/2 ML VIAL IM SCH ×3 (02:05→17:15)
[2022-08-12 06:07] LABS: Anion Gap 13 mmol/L (10-20); BUN (Urea Nitrogen) 14 mg/dL (9.8-20.1); Calc. Creatinine Clearance 166 mL/min (70-130); Carbon Dioxide 25 mmol/L (22-29); Chloride 108 mmol/L (98-107); Estimated GFR 103; Glucose 119 mg/dL (70-105); Magnesium 2.2 mg/dL (1.6-2.6); Phosphorus 3.6 mg/dL (2.3-4.7); Sodium 142 mmol/L (136-145)
[2022-08-12 06:08] LABS: Hemoglobin 9.9 g/dL (12.0-16.0); MDiff Complete? YES; Mean Corpuscular HGB CONC 32.9 g/dL (32.0-36.0); Mean Corpuscular Hemoglobin 30.9 pg (27.0-31.0); Mean Platelet Volume 7.9 fL (7.4-10.4); Platelet Count 213 10x3/uL (130-400); RBC Distribution Width 13.9 % (11.5-14.5); Red Blood Cell (RBC) Count 3.21 mill/uL (4.20-5.40); White Blood Cell (WBC) Count 13.9 10x3/uL (4.8-10.8)
[2022-08-12 06:09] LABS: Band 11 % (5-11); Hypochromia SLIGHT = 6-15 cells (100X) (0-5/hpf); Lymphocytes 3 % (21-51); Monocytes 11 % (0-10); Neutrophil 75 % (42-75); Platelet Morphology Comment Appears Adequate
[2022-08-12] MEDS: Albuterol HFA (OR) 200 PUFF INH INH SCH ×4 (08:38→19:15)
[2022-08-12] MEDS: Ipratropium 200 Puff Oral Inhaler INH SCH ×4 (08:39→19:13)
[2022-08-12] MEDS: Naloxegol 12.5 MG TAB PO SCH (08:41)
[2022-08-12] MEDS: Gabapentin 300 MG CAP PO SCH ×3 (08:41→20:56)
[2022-08-12] MEDS: Ferrous Sulfate 325 MG TAB PO SCH (08:42)
[2022-08-12] MEDS: Ascorbic Acid 500 mg Chewable Tablet PO SCH (08:42)
[2022-08-12] MEDS: Polyethylene Glycol 3350 17 GM Packet PO SCH (08:43)
[2022-08-12] MEDS: Senokot S 8.6-50 MG TAB PO SCH ×2 (08:43→20:55)
[2022-08-12 15:00] LABS: #Eosinphils 0.1 thou/uL (0.0-0.7); #Lymphocytes 1.4 thou/uL (1.20-3.40); #Monocytes 0.6 thou/uL (0.11-0.59); %Basophils 0.2 % (0.0-1.0); %Eosinophils 0.6 % (0.0-10.0); %Lymphocytes 10.1 % (21.0-51.0); Hemoglobin 10.3 g/dL (12.0-16.0); Mean Corpuscular HGB CONC 33.8 g/dL (32.0-36.0); Mean Corpuscular Hemoglobin 31.7 pg (27.0-31.0); Mean Corpuscular Volume 93.8 fl (78.0-98.0); Mean Platelet Volume 7.9 fL (7.4-10.4); Platelet Count 241 10x3/uL (130-400); RBC Distribution Width 14.3 % (11.5-14.5); Red Blood Cell (RBC) Count 3.26 mill/uL (4.20-5.40); White Blood Cell (WBC) Count 14.1 10x3/uL (4.8-10.8)
[2022-08-12] MEDS: Morphine 2 MG/ML VIAL SLOW IVP PRN (20:55)
[2022-08-13] MEDS: CEFAZOLIN 2 GM in Sodium Chloride 0.9% 100 ML IVPB SCH ×3 (02:06→17:29)
[2022-08-13] MEDS: Gentamicin 80 MG/2 ML VIAL IM SCH ×3 (02:06→17:30)
[2022-08-13] MEDS: Acetaminophen 325 MG TAB PO SCH ×2 (05:21→11:42)
[2022-08-13] MEDS: Acetaminophen/Codeine 30-300mg Tablet PO SCH ×2 (05:21→11:42)
[2022-08-13] MEDS: traMADol HCl 50 MG TAB PO SCH ×2 (05:22→11:42)
[2022-08-13] MEDS: Morphine 4 MG/ML VIAL SLOW IVP PRN ×3 (05:23→12:00)
[2022-08-13] MEDS ORDERED: CEFAZOLIN 2 GM in Sodium Chloride 0.9% 100 ML IVPB SCH (07:15)
[2022-08-13] MEDS: Ferrous Sulfate 325 MG TAB PO SCH (08:21)
[2022-08-13] MEDS: Naloxegol 12.5 MG TAB PO SCH (08:21)
[2022-08-13] MEDS: Gabapentin 300 MG CAP PO SCH ×3 (08:21→21:13)
[2022-08-13] MEDS: Ibuprofen 200 MG TAB PO SCH ×2 (08:21→17:30)
[2022-08-13] MEDS: Ascorbic Acid 500 mg Chewable Tablet PO SCH (08:21)
[2022-08-13] MEDS: Senokot S 8.6-50 MG TAB PO SCH ×2 (08:22→21:12)
[2022-08-13] MEDS: Polyethylene Glycol 3350 17 GM Packet PO SCH (08:22)
[2022-08-13 08:40] LABS: #Eosinphils 0.3 thou/uL (0.0-0.7); #Lymphocytes 1.2 thou/uL (1.20-3.40); #Monocytes 0.7 thou/uL (0.11-0.59); #Neutrophils 8.4 thou/uL (1.40-6.50); %Basophils 0.3 % (0.0-1.0); %Eosinophils 2.8 % (0.0-10.0); %Lymphocytes 11.5 % (21.0-51.0); %Monocytes 6.2 % (0.0-10.0); %Neutrophils 79.3 % (42.0-75.0); Mean Corpuscular HGB CONC 34.3 g/dL (32.0-36.0); Mean Corpuscular Hemoglobin 32.1 pg (27.0-31.0); Mean Corpuscular Volume 93.6 fl (78.0-98.0); Mean Platelet Volume 7.6 fL (7.4-10.4); Platelet Count 240 10x3/uL (130-400); RBC Distribution Width 14.5 % (11.5-14.5); Red Blood Cell (RBC) Count 3.11 mill/uL (4.20-5.40); White Blood Cell (WBC) Count 10.6 10x3/uL (4.8-10.8)
[2022-08-13] MEDS: Albuterol HFA (OR) 200 PUFF INH INH SCH ×3 (08:41→18:43)
[2022-08-13] MEDS: Ipratropium 200 Puff Oral Inhaler INH SCH ×3 (08:42→18:44)
[2022-08-13] MEDS ORDERED: Thrombin 5000 UNITS/5 ML VIAL ONE (12:05)
[2022-08-13] MEDS ORDERED: Bupivacaine PF 0.5% 30 ML VIAL ONE (12:05)
[2022-08-13] MEDS ORDERED: Bacitracin Zinc Ointment 30 gm TUBE ONE (12:05)
[2022-08-13] MEDS ORDERED: HYDROcodone/Acetaminophen 7.5/325 mg Tablet PO SCH (12:45)
[2022-08-13] MEDS ORDERED: Sodium Chloride 0.9% 100 ML ONE (13:36)
[2022-08-13] MEDS ORDERED: CEFAZOLIN 2 GM VIAL ONE (13:36)
[2022-08-13] MEDS ORDERED: PROPOFOL 200 MG/20 ML VIAL ONE (14:08)
[2022-08-13] MEDS ORDERED: PHENYLEPHRINE-NS 100 MCG/ML 10 ML SYRINGE ONE (14:08)
[2022-08-13] MEDS ORDERED: Lidocaine 1% PF 5 ML VIAL ONE (14:08)
[2022-08-13] MEDS ORDERED: HYDROmorphone 0.5 MG/0.5 ML SYRINGE ONE (14:44)
[2022-08-13] MEDS ORDERED: Fentanyl 250 MCG/5 ML VIAL ONE (14:49)
[2022-08-13] MEDS ORDERED: Ondansetron HCl/PF 4 MG/2 ML Vial IVP PRN (14:50)
[2022-08-13] MEDS ORDERED: Promethazine HCl 25 MG/ML VIAL IM PRN (14:50)
[2022-08-13] MEDS ORDERED: HYDROmorphone 2 MG/ML VIAL SLOW IVP PRN (14:50)
[2022-08-13] MEDS: HYDROcodone/Acetaminophen 7.5/325 mg Tablet PO SCH (17:31)
[2022-08-13] MEDS: Melatonin 3 MG TAB PO SCH (21:13)
[2022-08-13] MEDS: HYDROcodone/Acetaminophen 7.5/325 mg Tablet PO PRN (21:13)
[2022-08-13] MEDS: Scopolamine 1.5 mg/72 hour Patch TD SCH (21:34)
[2022-08-14] MEDS: HYDROcodone/Acetaminophen 7.5/325 mg Tablet PO SCH ×5 (01:00→23:36)
[2022-08-14] MEDS: Ibuprofen 200 MG TAB PO SCH ×4 (01:01→23:37)
[2022-08-14] MEDS: Morphine 2 MG/ML VIAL SLOW IVP PRN ×2 (06:20→14:10)
[2022-08-14 06:27] LABS: #Eosinphils 0.3 thou/uL (0.0-0.7); #Lymphocytes 1.1 thou/uL (1.20-3.40); #Monocytes 0.8 thou/uL (0.11-0.59); #Neutrophils 6.8 thou/uL (1.40-6.50); %Basophils 0.3 % (0.0-1.0); %Eosinophils 3.4 % (0.0-10.0); %Lymphocytes 12.4 % (21.0-51.0); %Monocytes 8.7 % (0.0-10.0); %Neutrophils 75.2 % (42.0-75.0); Hemoglobin 9.9 g/dL (12.0-16.0); Mean Corpuscular HGB CONC 32.7 g/dL (32.0-36.0); Mean Corpuscular Hemoglobin 30.8 pg (27.0-31.0); Mean Corpuscular Volume 94.4 fl (78.0-98.0); Mean Platelet Volume 7.8 fL (7.4-10.4); Platelet Count 257 10x3/uL (130-400); RBC Distribution Width 14.5 % (11.5-14.5)
[2022-08-14 06:49] LABS: Anion Gap 13 mmol/L (10-20); BUN (Urea Nitrogen) 13 mg/dL (9.8-20.1); Calc. Creatinine Clearance 170 mL/min (70-130); Calcium 8.2 mg/dL (7.8-10.44); Carbon Dioxide 24 mmol/L (22-29); Chloride 107 mmol/L (98-107); Estimated GFR 103; Glucose 104 mg/dL (70-105); Magnesium 1.8 mg/dL (1.6-2.6); Phosphorus 3.4 mg/dL (2.3-4.7); Potassium 3.4 mmol/L (3.5-5.1); Sodium 141 mmol/L (136-145)
[2022-08-14] MEDS: Ipratropium 200 Puff Oral Inhaler INH SCH ×3 (07:48→18:58)
[2022-08-14] MEDS: Albuterol HFA (OR) 200 PUFF INH INH SCH ×3 (07:48→18:57)
[2022-08-14] MEDS: Gabapentin 300 MG CAP PO SCH ×3 (08:45→20:33)
[2022-08-14] MEDS: Polyethylene Glycol 3350 17 GM Packet PO SCH (08:46)
[2022-08-14] MEDS: Ascorbic Acid 500 mg Chewable Tablet PO SCH (08:49)
[2022-08-14] MEDS: Ferrous Sulfate 325 MG TAB PO SCH (08:49)
[2022-08-14] MEDS: Senokot S 8.6-50 MG TAB PO SCH ×2 (08:50→20:34)
[2022-08-14] MEDS ORDERED: Potassium Phosphate 30 MMOL, Magnesium Sulfate 2 GM in Sodium Chloride 0.9% 250 ML 250 ML IVPB SCH (09:15)
[2022-08-14] MEDS: Naloxegol 12.5 MG TAB PO SCH (09:16)
[2022-08-14 15:25] VITALS: BMI 36.6
[2022-08-14] MEDS: Morphine 4 MG/ML VIAL SLOW IVP PRN (20:29)
[2022-08-14] MEDS: Melatonin 3 MG TAB PO SCH (20:33)
[2022-08-14] MEDS: HYDROcodone/Acetaminophen 7.5/325 mg Tablet PO PRN (23:37)
[2022-08-15] MEDS: HYDROcodone/Acetaminophen 7.5/325 mg Tablet PO SCH ×4 (06:27→23:37)
[2022-08-15] MEDS ORDERED: Midazolam HCl 2 mg/2 ml Vial ONE (06:32)
[2022-08-15] MEDS ORDERED: Fentanyl 250 MCG/5 ML VIAL ONE (06:32)
[2022-08-15] MEDS ORDERED: Phenylephrine 10 MG/ML VIAL ONE (06:46)
[2022-08-15] MEDS: Ipratropium 200 Puff Oral Inhaler INH SCH ×3 (06:52→18:59)
[2022-08-15] MEDS: Albuterol HFA (OR) 200 PUFF INH INH SCH ×3 (06:52→18:59)
[2022-08-15] MEDS ORDERED: Vasopressin 20 UNITS/ML VIAL ONE (06:59)
[2022-08-15] MEDS ORDERED: Sodium Chloride 0.9% 100 ML ONE (07:09)
[2022-08-15] MEDS ORDERED: CEFAZOLIN 2 GM VIAL ONE (07:09)
[2022-08-15] MEDS ORDERED: PHENYLEPHRINE-NS 100 MCG/ML 10 ML SYRINGE ONE (07:35)
[2022-08-15] MEDS ORDERED: Rocuronium Bromide 10 MG/ML (10ML VIAL) ONE (07:35)
[2022-08-15] MEDS ORDERED: Lidocaine 1% PF 5 ML VIAL ONE (07:35)
[2022-08-15] MEDS ORDERED: Ondansetron PF 4 MG/2 ML Vial ONE (07:35)
[2022-08-15] MEDS ORDERED: PROPOFOL 200 MG/20 ML VIAL ONE (07:35)
[2022-08-15] MEDS ORDERED: Dexamethasone 20 MG/5 ML VIAL ONE (07:35)
[2022-08-15] MEDS: Ibuprofen 200 MG TAB PO SCH ×3 (09:41→23:36)
[2022-08-15] MEDS: Naloxegol 12.5 MG TAB PO SCH (09:41)
[2022-08-15] MEDS: Ascorbic Acid 500 mg Chewable Tablet PO SCH (09:41)
[2022-08-15] MEDS: Polyethylene Glycol 3350 17 GM Packet PO SCH (09:42)
[2022-08-15] MEDS: Gabapentin 300 MG CAP PO SCH ×3 (09:42→21:20)
[2022-08-15] MEDS: Ferrous Sulfate 325 MG TAB PO SCH (09:42)
[2022-08-15] MEDS: Senokot S 8.6-50 MG TAB PO SCH ×2 (09:42→21:20)
[2022-08-15] MEDS ORDERED: Bacitracin Zinc Ointment 30 gm TUBE ONE (10:22)
[2022-08-15] MEDS ORDERED: Mineral Oil Sterile 10 ML VIAL ONE (10:33)
[2022-08-15] MEDS ORDERED: Bupivacaine PF 0.5% 30 ML VIAL ONE (10:45)
[2022-08-15] MEDS ORDERED: SUGAMMADEX SODIUM 200 MG/2 ML VIAL ONE (11:14)
[2022-08-15] MEDS ORDERED: Ondansetron HCl/PF 4 MG/2 ML Vial IVP PRN ×2 (11:27→11:34)
[2022-08-15] MEDS ORDERED: Promethazine HCl 25 MG/ML VIAL IM PRN ×2 (11:27→11:34)
[2022-08-15] MEDS ORDERED: HYDROmorphone 2 MG/ML VIAL SLOW IVP PRN ×2 (11:27→11:34)
[2022-08-15] MEDS ORDERED: HYDROmorphone 0.5 MG/0.5 ML SYRINGE ONE ×3 (11:43→12:28)
[2022-08-15] MEDS ORDERED: Meperidine HCl/PF 25 MG/ML VIAL ONE (11:53)
[2022-08-15] MEDS: Morphine 4 MG/ML VIAL SLOW IVP PRN ×2 (13:11→16:48)
[2022-08-15] MEDS: CEFAZOLIN 2 GM in Sodium Chloride 0.9% 100 ML IVPB SCH ×2 (15:36→23:35)
[2022-08-15] MEDS: Ondansetron PF 4 MG/2 ML Vial IVP PRN (15:36)
[2022-08-15] MEDS: HYDROcodone/Acetaminophen 7.5/325 mg Tablet PO PRN (19:40)
[2022-08-15] MEDS: Melatonin 3 MG TAB PO SCH (21:20)
[2022-08-15] MEDS: Cyclobenzaprine 10 MG TAB PO PRN (22:24)
[2022-08-16] MEDS: HYDROcodone/Acetaminophen 7.5/325 mg Tablet PO PRN ×4 (03:38→22:28)
[2022-08-16] MEDS: HYDROcodone/Acetaminophen 7.5/325 mg Tablet PO SCH ×3 (06:39→18:42)
[2022-08-16] MEDS: Naloxegol 12.5 MG TAB PO SCH (06:39)
[2022-08-16 07:13] LABS: #Eosinphils 0.1 thou/uL (0.0-0.7); #Lymphocytes 2.2 thou/uL (1.20-3.40); #Monocytes 1.2 thou/uL (0.11-0.59); #Neutrophils 8.6 thou/uL (1.40-6.50); %Basophils 0.1 % (0.0-1.0); %Eosinophils 1.2 % (0.0-10.0); %Lymphocytes 18.1 % (21.0-51.0); %Monocytes 9.5 % (0.0-10.0); %Neutrophils 71.1 % (42.0-75.0); Hemoglobin 7.3 g/dL (12.0-16.0); Mean Corpuscular HGB CONC 30.4 g/dL (32.0-36.0); Mean Corpuscular Hemoglobin 29.4 pg (27.0-31.0); Mean Corpuscular Volume 96.7 fl (78.0-98.0); Mean Platelet Volume 7.8 fL (7.4-10.4); Platelet Count 336 10x3/uL (130-400); RBC Distribution Width 14.4 % (11.5-14.5); Red Blood Cell (RBC) Count 2.48 mill/uL (4.20-5.40); White Blood Cell (WBC) Count 12.1 10x3/uL (4.8-10.8)
[2022-08-16 07:28] LABS: Anion Gap 11 mmol/L (10-20); BUN (Urea Nitrogen) 21 mg/dL (9.8-20.1); Calc. Creatinine Clearance 149 mL/min (70-130); Calcium 7.8 mg/dL (7.8-10.44); Carbon Dioxide 23 mmol/L (22-29); Chloride 108 mmol/L (98-107); Estimated GFR 87; Glucose 127 mg/dL (70-105); Phosphorus 3.9 mg/dL (2.3-4.7); Sodium 138 mmol/L (136-145)
[2022-08-16] MEDS: Albuterol HFA (OR) 200 PUFF INH INH SCH ×3 (07:41→18:46)
[2022-08-16] MEDS: Ipratropium 200 Puff Oral Inhaler INH SCH ×3 (07:41→18:47)
[2022-08-16 07:46] LABS: INR-International Normal Ratio 1.1; Prothrombin Time 14.2 sec (12.0-14.7)
[2022-08-16 07:47] LABS: PTT 29.2 sec (22.9-36.1)
[2022-08-16] MEDS: Ascorbic Acid 500 mg Chewable Tablet PO SCH (09:38)
[2022-08-16] MEDS: Senokot S 8.6-50 MG TAB PO SCH ×2 (09:38→22:28)
[2022-08-16] MEDS: Polyethylene Glycol 3350 17 GM Packet PO SCH (09:38)
[2022-08-16] MEDS: Gabapentin 300 MG CAP PO SCH ×3 (09:38→22:28)
[2022-08-16] MEDS: Ferrous Sulfate 325 MG TAB PO SCH (09:47)
[2022-08-16] MEDS: Ibuprofen 200 MG TAB PO SCH ×2 (09:57→15:37)
[2022-08-16] MEDS: Morphine 2 MG/ML VIAL SLOW IVP PRN (13:36)
[2022-08-16] MEDS: Morphine 4 MG/ML VIAL SLOW IVP PRN (19:29)
[2022-08-16] MEDS: Cyclobenzaprine 10 MG TAB PO PRN (22:28)
[2022-08-16] MEDS: Melatonin 3 MG TAB PO SCH (22:29)
[2022-08-16] MEDS: Scopolamine 1.5 mg/72 hour Patch TD SCH (22:30)
[2022-08-17] MEDS: HYDROcodone/Acetaminophen 7.5/325 mg Tablet PO SCH ×4 (00:46→16:58)
[2022-08-17] MEDS: Ibuprofen 200 MG TAB PO SCH ×3 (00:47→16:59)
[2022-08-17] MEDS: HYDROcodone/Acetaminophen 7.5/325 mg Tablet PO PRN ×3 (03:59→21:01)
[2022-08-17] MEDS: Naloxegol 12.5 MG TAB PO SCH (06:06)
[2022-08-17] MEDS: Ipratropium 200 Puff Oral Inhaler INH SCH ×3 (07:19→18:16)
[2022-08-17] MEDS: Albuterol HFA (OR) 200 PUFF INH INH SCH ×3 (07:19→18:16)
[2022-08-17 09:12] LABS: Mean Corpuscular HGB CONC 28.7 g/dL (32.0-36.0); Mean Corpuscular Hemoglobin 27.4 pg (27.0-31.0); Mean Corpuscular Volume 95.6 fl (78.0-98.0); Mean Platelet Volume 7.8 fL (7.4-10.4); Platelet Count 370 10x3/uL (130-400); RBC Distribution Width 14.9 % (11.5-14.5); Red Blood Cell (RBC) Count 3.63 mill/uL (4.20-5.40)
[2022-08-17] MEDS: Ferrous Sulfate 325 MG TAB PO SCH (09:15)
[2022-08-17] MEDS: Gabapentin 300 MG CAP PO SCH ×3 (09:15→21:02)
[2022-08-17] MEDS: Ascorbic Acid 500 mg Chewable Tablet PO SCH (09:16)
[2022-08-17] MEDS: Senokot S 8.6-50 MG TAB PO SCH ×2 (09:16→21:03)
[2022-08-17] MEDS: Polyethylene Glycol 3350 17 GM Packet PO SCH (09:16)
[2022-08-17 09:21] LABS: Anisocytosis SLIGHT = 6-15 cells (100X) (0-5/hpf); Band 4 % (5-11); Lymphocytes 17 % (21-51); MDiff Complete? YES; Metamyelocyte 3 % (0-0); Monocytes 3 % (0-10); Myelocyte 2 % (0-0); Neutrophil 68 % (42-75); Platelet Morphology Comment Appears Adequate; Polychromasia MODERATE = 3-4 cells (100X) (0-2/hpf); Reactive Lymphocytes 3 % (0-10)
[2022-08-17] MEDS: Cyclobenzaprine 10 MG TAB PO PRN (19:34)
[2022-08-17] MEDS: Morphine 2 MG/ML VIAL SLOW IVP PRN (19:38)
[2022-08-17] MEDS: Ketorolac Tromethamine 30 MG/ML VIAL IVP SCH (21:02)
[2022-08-17] MEDS: Melatonin 3 MG TAB PO SCH (21:03)
[2022-08-18] MEDS: Ketorolac Tromethamine 30 MG/ML VIAL IVP SCH ×5 (00:46→11:54)
[2022-08-18] MEDS: HYDROcodone/Acetaminophen 7.5/325 mg Tablet PO SCH ×4 (00:47→17:02)
[2022-08-18] MEDS: HYDROcodone/Acetaminophen 7.5/325 mg Tablet PO PRN ×3 (05:00→19:04)
[2022-08-18 05:29] LABS: #Eosinphils 0.3 thou/uL (0.0-0.7); #Lymphocytes 1.8 thou/uL (1.20-3.40); #Monocytes 0.8 thou/uL (0.11-0.59); #Neutrophils 5.1 thou/uL (1.40-6.50); %Basophils 0.1 % (0.0-1.0); %Eosinophils 3.8 % (0.0-10.0); %Lymphocytes 22.7 % (21.0-51.0); %Monocytes 9.6 % (0.0-10.0); %Neutrophils 63.9 % (42.0-75.0); Hemoglobin 9.1 g/dL (12.0-16.0); Mean Corpuscular HGB CONC 32.3 g/dL (32.0-36.0); Mean Corpuscular Hemoglobin 31.4 pg (27.0-31.0); Mean Corpuscular Volume 97.3 fl (78.0-98.0); Mean Platelet Volume 7.5 fL (7.4-10.4); Platelet Count 352 10x3/uL (130-400); RBC Distribution Width 14.5 % (11.5-14.5); Red Blood Cell (RBC) Count 2.89 mill/uL (4.20-5.40)
[2022-08-18] MEDS: Albuterol HFA (OR) 200 PUFF INH INH SCH ×3 (07:46→18:39)
[2022-08-18] MEDS: Ipratropium 200 Puff Oral Inhaler INH SCH ×3 (07:46→18:40)
[2022-08-18 08:08] VITALS: TEMP 98.3
[2022-08-18] MEDS: Naloxegol 12.5 MG TAB PO SCH (09:22)
[2022-08-18] MEDS: Polyethylene Glycol 3350 17 GM Packet PO SCH (09:22)
[2022-08-18] MEDS: Senokot S 8.6-50 MG TAB PO SCH (09:22)
[2022-08-18] MEDS: Ascorbic Acid 500 mg Chewable Tablet PO SCH (09:22)
[2022-08-18] MEDS: Ferrous Sulfate 325 MG TAB PO SCH (09:23)
[2022-08-18] MEDS: Gabapentin 300 MG CAP PO SCH ×2 (09:23→15:09)
[2022-08-18] MEDS ORDERED: Morphine 2 MG/ML VIAL SLOW IVP SCH (10:30)
[2022-08-18 12:17] VITALS: BP 116/77
[2022-08-18] MEDS: Cyclobenzaprine 10 MG TAB PO PRN (17:02)
[2022-08-19 17:24] LABS: Actual Bicarbonate (HCO3a) 21.9 mEq/L (22-28); Analyzer IN Cardio OR; Base Excess (BEa) -2.5 mEq/L (-2.0 to +3.0); Calcium, Ionized (arterial) 1.15 mmol/L (1.12-1.30); Carboxyhemoglobin (COHb) 0.3 gm% (0.0-3.0); Hematocrit-ABG 26 % (36.0-47.0); Hemoglobin (Hb) 8.9 g/dL (12.0-16.0); O2 Tension (PaO2), arterial 91.3 mmHg (> 80.0); Potassium - ABG Lab 3.71 mmol/L (3.70-5.30); Puncture Site Arterial Line; pH, Arterial 7.402 (7.35-7.45)
[2022-08-19 17:25] LABS: Actual Bicarbonate (HCO3a) 21.6 mEq/L (22-28); Analyzer IN Cardio OR; Base Excess (BEa) -2.6 mEq/L (-2.0 to +3.0); CO2 Tension 34.5 mmHg (35.0-45.0); Calcium, Ionized (arterial) 1.05 mmol/L (1.12-1.30); Carboxyhemoglobin (COHb) 0.7 gm% (0.0-3.0); Hematocrit-ABG 24 % (36.0-47.0); Hemoglobin (Hb) 8.1 g/dL (12.0-16.0); O2 Tension (PaO2), arterial 106.6 mmHg (> 80.0); Potassium - ABG Lab 3.44 mmol/L (3.70-5.30); pH, Arterial 7.415 (7.35-7.45)
[2022-08-19 17:26] LABS: Actual Bicarbonate (HCO3a) 25.1 mEq/L (22-28); Analyzer IN Cardio OR; Base Excess (BEa) 1.6 mEq/L (-2.0 to +3.0); CO2 Tension 35.2 mmHg (35.0-45.0); Calcium, Ionized (arterial) 1.02 mmol/L (1.12-1.30); Carboxyhemoglobin (COHb) 0.7 gm% (0.0-3.0); Hematocrit-ABG 29 % (36.0-47.0); Hemoglobin (Hb) 9.9 g/dL (12.0-16.0); O2 Tension (PaO2), arterial 74.4 mmHg (> 80.0); Potassium - ABG Lab 3.32 mmol/L (3.70-5.30); pH, Arterial 7.471 (7.35-7.45)
[2022-08-19 17:26] LABS: Analyzer IN Cardio OR; Base Excess (BEa) 1.3 mEq/L (-2.0 to +3.0); CO2 Tension 35.9 mmHg (35.0-45.0); Hematocrit-ABG 30 % (36.0-47.0); Hemoglobin (Hb) 10.1 g/dL (12.0-16.0); O2 Tension (PaO2), arterial 139.4 mmHg (> 80.0); Potassium - ABG Lab 3.43 mmol/L (3.70-5.30)
[2022-08-19 17:27] LABS: Puncture Site Arterial Line
[2022-08-19 17:27] LABS: Puncture Site Arterial Line
[2022-08-19 17:28] LABS: Puncture Site Arterial Line
== END 2022-08-18 19:50 | DRG 957 ==
LOC: EDBD 21:46 → ERS 21:46 → SDC/OP 23:56 → EDBD 08-03 03:31 → CCU 08-03 03:31 → SURG B 08-09 08:21
PROVIDERS: ADMIT Surgery; ATTEND Surgery
PROC: 30233K1 Transfusion of Nonautologous Frozen Plasma into Peripheral Vein, Percutaneous Approach (ICD-10-PCS; principal; 2022-08-02)
PROC: 30233N1 Transfusion of Nonautologous Red Blood Cells into Peripheral Vein, Percutaneous Approach (ICD-10-PCS; 2022-08-02)
PROC: 6A551Z2 Pheresis of Platelets, Multiple (ICD-10-PCS; 2022-08-02)
PROC: 5A1955Z Respiratory Ventilation, Greater than 96 Consecutive Hours (ICD-10-PCS; 2022-08-03)
PROC: 04VE3DZ Restriction of Right Internal Iliac Artery with Intraluminal Device, Percutaneous Approach (ICD-10-PCS; 2022-08-03)
PROC: 04VF3DZ Restriction of Left Internal Iliac Artery with Intraluminal Device, Percutaneous Approach (ICD-10-PCS; 2022-08-03)
PROC: 0WJG0ZZ Inspection of Peritoneal Cavity, Open Approach (ICD-10-PCS; 2022-08-03)
PROC: B41D1ZZ Fluoroscopy of Aorta and Bilateral Lower Extremity Arteries using Low Osmolar Contrast (ICD-10-PCS; 2022-08-03)
PROC: 02H633Z Insertion of Infusion Device into Right Atrium, Percutaneous Approach (ICD-10-PCS; 2022-08-03)
PROC: 30233J1 Transfusion of Nonautologous Serum Albumin into Peripheral Vein, Percutaneous Approach (ICD-10-PCS; 2022-08-03)
PROC: 4A133R1 Monitoring of Arterial Saturation, Peripheral, Percutaneous Approach (ICD-10-PCS; 2022-08-03)
PROC: 3E043XZ Introduction of Vasopressor into Central Vein, Percutaneous Approach (ICD-10-PCS; 2022-08-04)
PROC: 0QS335Z Reposition Left Pelvic Bone with External Fixation Device, Percutaneous Approach (ICD-10-PCS; 2022-08-04)
PROC: 0QS235Z Reposition Right Pelvic Bone with External Fixation Device, Percutaneous Approach (ICD-10-PCS; 2022-08-04)
PROC: 0SS Lower Joints, Reposition (ICD-10-PCS; 2022-08-04)
PROC: 01N50ZZ Release Median Nerve, Open Approach (ICD-10-PCS; 2022-08-05)
PROC: 0W9B30Z Drainage of Left Pleural Cavity with Drainage Device, Percutaneous Approach (ICD-10-PCS; 2022-08-05)
PROC: 0B9J8ZX Drainage of Left Lower Lung Lobe, Via Natural or Artificial Opening Endoscopic, Diagnostic (ICD-10-PCS; 2022-08-05)
PROC: 0B9G8ZX Drainage of Left Upper Lung Lobe, Via Natural or Artificial Opening Endoscopic, Diagnostic (ICD-10-PCS; 2022-08-05)
PROC: 0BC68ZZ Extirpation of Matter from Right Lower Lobe Bronchus, Via Natural or Artificial Opening Endoscopic (ICD-10-PCS; 2022-08-05)
PROC: 01Q40ZZ Repair Ulnar Nerve, Open Approach (ICD-10-PCS; 2022-08-05)
PROC: 0PSH04Z Reposition Right Radius with Internal Fixation Device, Open Approach (ICD-10-PCS; 2022-08-05)
PROC: 0PSK04Z Reposition Right Ulna with Internal Fixation Device, Open Approach (ICD-10-PCS; 2022-08-05)
PROC: 0LQ50ZZ Repair Right Lower Arm and Wrist Tendon, Open Approach (ICD-10-PCS; 2022-08-05)
PROC: 01Q50ZZ Repair Median Nerve, Open Approach (ICD-10-PCS; 2022-08-05)
PROC: 0PSG04Z Reposition Left Humeral Shaft with Internal Fixation Device, Open Approach (ICD-10-PCS; 2022-08-06)
PROC: 0PSJ04Z Reposition Left Radius with Internal Fixation Device, Open Approach (ICD-10-PCS; 2022-08-06)
PROC: 0BCB8ZZ Extirpation of Matter from Left Lower Lobe Bronchus, Via Natural or Artificial Opening Endoscopic (ICD-10-PCS; 2022-08-06)
PROC: 0BC48ZZ Extirpation of Matter from Right Upper Lobe Bronchus, Via Natural or Artificial Opening Endoscopic (ICD-10-PCS; 2022-08-06)
PROC: 0BC88ZZ Extirpation of Matter from Left Upper Lobe Bronchus, Via Natural or Artificial Opening Endoscopic (ICD-10-PCS; 2022-08-06)
PROC: 0BC68ZZ Extirpation of Matter from Right Lower Lobe Bronchus, Via Natural or Artificial Opening Endoscopic (ICD-10-PCS; 2022-08-06)
PROC: 0PBH0ZZ Excision of Right Radius, Open Approach (ICD-10-PCS; 2022-08-11)
PROC: 2W3RX1Z Immobilization of Left Lower Leg using Splint (ICD-10-PCS; 2022-08-11)
DX: S32.5 Fracture of pubis (principal); S06.6X0A Traumatic subarachnoid hemorrhage without loss of consciousness, initial encounter; J69.0 Pneumonitis due to inhalation of food and vomit; T79.4XXA Traumatic shock, initial encounter; S52.91XB Unspecified fracture of right forearm, initial encounter for open fracture type I or II; S52.201B Unspecified fracture of shaft of right ulna, initial encounter for open fracture type I or II; S32.1 Fracture of sacrum; J96.00 Acute respiratory failure, unspecified whether with hypoxia or hypercapnia; S42.302A Unspecified fracture of shaft of humerus, left arm, initial encounter for closed fracture; S02.113A Unspecified occipital condyle fracture, initial encounter for closed fracture; S22.019A Unspecified fracture of first thoracic vertebra, initial encounter for closed fracture; S22.059A Unspecified fracture of T5-T6 vertebra, initial encounter for closed fracture; S32.039A Unspecified fracture of third lumbar vertebra, initial encounter for closed fracture; S32.059A Unspecified fracture of fifth lumbar vertebra, initial encounter for closed fracture; S52.501A Unspecified fracture of the lower end of right radius, initial encounter for closed fracture; E87.20 Acidosis, unspecified; N17.9 Acute kidney failure, unspecified; D62 Acute posthemorrhagic anemia; S27.0XXA Traumatic pneumothorax, initial encounter; S33.2XXA Dislocation of sacroiliac and sacrococcygeal joint, initial encounter; R31.9 Hematuria, unspecified; T79.6XXA Traumatic ischemia of muscle, initial encounter; E87.6 Hypokalemia; E83.42 Hypomagnesemia; E83.39 Other disorders of phosphorus metabolism; S32.511 Fracture of superior rim of right pubis; S01.81XA Laceration without foreign body of other part of head, initial encounter; S71.111A Laceration without foreign body, right thigh, initial encounter; K59.00 Constipation, unspecified; R40.2413 Glasgow coma scale score 13-15, at hospital admission; G89.4 Chronic pain syndrome; J45.909 Unspecified asthma, uncomplicated; Z96.643 Presence of artificial hip joint, bilateral; V24.49XA Other motorcycle driver injured in collision with heavy transport vehicle or bus in traffic accident, initial encounter; Z90.710 Acquired absence of both cervix and uterus; Y92.410 Unspecified street and highway as the place of occurrence of the external cause
CPT/HCPCS: 31500; 31624; 36245; 36246; 36415; 36416; 36430; 36600; 37242; 37244; 70450; 70486; 71045; 71260; 72125; 72170; 72190; 74177; 75736; 80048; 80053; 80306; 80307; 81001; 82533; 82550; 82805; 83605; 83690; 83735; 84100; 85025; 85049; 85300; 85362; 85379; 85384; 85610; 85730; 86850; 86900; 86901; 87070; 87077; 87186; 87205; 90715; 94002; 94003; 94640; 96374; 96375; 96376; 97139; C1713; C1769; C1884; C1887; C1894; C9113; G0390; J0360; J0690; J1100; J1170; J1580; J1650; J1720; J1815; J1885; J1940; J1956; J2001; J2175; J2250; J2270; J2272; J2370; J2405; J2543; J2550; J2704; J3010; J3370; J3475; J3490; J7050; J7120; J7620; L0472; P9016; P9035; P9045; P9048; P9059; Q9967; S0020